=== PATIENT | male | born 1950 | race African-American/Black ===

== ENCOUNTER 2021-02-18 09:22 | Inpatient (IN) | payer OTHER, MEDICAID ==
[~2021-02-18] VITALS: Ht 177.8 cm; Wt 81.0 kg
[~2021-02-18 09:22] MED LIST: AMLO10TA80 PO; ATOR40TA70 MT; CLOP-31 MT; FINA5TAB11 MT; HYDR100T26 PO; ISOS20TA8 PO; METF-414 PO
[2021-02-18] MEDS ORDERED: DEXTROSE 50% WATER 50ML SYRINGE IV ONE ×2 (10:15→14:45)
[2021-02-18 11:08] LABS: HEMATOCRIT. 27.6 % (42.0-52.0); HEMOGLOBIN. 8.9 g/dL (14.0-18.0); MEAN CORPUSCULAR HEMOGLOBIN 27.5 pg (28.0-32.0); MEAN CORPUSCULAR VOLUME 84.9 fL (80.0-94.0); MEAN PLATELET VOLUME 8.3 fl (7.4-10.4); PLATELET 262 x1000/uL (130-400); RED BLOOD CELL COUNT 3.25 mill/uL (4.7-6.1); RED CELL DISTRIBUTION WIDTH 15.8 % (11.6-14.6)
[2021-02-18 11:15] LABS: CHLORIDE 110 mEq/L (98-107)
[2021-02-18 11:47] LABS: PLATELET ESTIMATE NORMAL
[2021-02-18] MEDS ORDERED: SODIUM CHLORIDE 0.9% 1000ML BAG (SEPSIS BOLUS) IV ONE (12:00)
[2021-02-18] MEDS ORDERED: MORPHINE SULFATE 2 MG/ML CPJ (NOT FOR IM USE) IV ONE (12:00)
[2021-02-18] MEDS ORDERED: CEFTRIAXONE 1 G PREMIX 50 ML IV ONE (12:00)
[2021-02-18] MEDS ORDERED: AZITHROMYCIN 500MG/250ML 250 ML IV ONE (12:00)
[2021-02-18] MEDS ORDERED: DEXAMETHASONE 10 MG/ML VIAL IV ONE (14:45)
[2021-02-18] MEDS ORDERED: DEXTROSE 50% WATER 50ML SYRINGE IV NR (14:48)
[2021-02-18] MEDS ORDERED: DEXTROSE 10% WATER 500 ML IV ONE (16:15)
[2021-02-18] MEDS ORDERED: ONDANSETRON HCL 4MG/2ML INJ IV PRN (18:00)
[2021-02-18] MEDS ORDERED: DEXT 10% WATER 1,000 ML IV SCH (18:00)
[2021-02-18] MEDS ORDERED: DEXTROSE 50% WATER 50ML SYRINGE IV PRN (18:00)
[2021-02-18] MEDS: INSULIN LISPRO 100 UNITS/ML SUBCUT SCH ×2 (18:20→21:00)
[2021-02-18] MEDS ORDERED: DOPAMINE 400MG/250ML PREMIX 250 ML IV NR (19:15)
[2021-02-18] MEDS ORDERED: ALBUTEROL (0.5%) 2.5MG/0.5ML NEB HHN SCH (19:30)
[2021-02-18] MEDS: BLOOD SUGAR DIAGNOSTIC STRIP TEST SCH (21:00)
[2021-02-19] MEDS: BLOOD SUGAR DIAGNOSTIC STRIP TEST SCH ×3 (06:40→16:30)
[2021-02-19] MEDS: INSULIN LISPRO 100 UNITS/ML SUBCUT SCH ×3 (06:57→17:00)
[2021-02-19] MEDS ORDERED: DEXTROSE 5% WATER 1,000 ML IV SCH (07:00)
[2021-02-19 09:49] LABS: HEMATOCRIT. 27.9 % (42.0-52.0); HEMOGLOBIN. 8.8 g/dL (14.0-18.0); MEAN CORPUSCULAR HEMOGLOBIN 26.8 pg (28.0-32.0); MEAN CORPUSCULAR VOLUME 84.3 fL (80.0-94.0); MEAN PLATELET VOLUME 8.7 fl (7.4-10.4); PLATELET 256 x1000/uL (130-400); RED BLOOD CELL COUNT 3.31 mill/uL (4.7-6.1); RED CELL DISTRIBUTION WIDTH 15.5 % (11.6-14.6)
[2021-02-19 09:52] LABS: CHLORIDE 108 mEq/L (98-107)
[2021-02-19 09:59] LABS: LDL CHOLESTEROL 64 mg/dL (5-100)
[2021-02-19 10:00] LABS: HDL CHOLESTEROL 47 mg/dL (40-59)
[2021-02-19 13:51] LABS: PLATELET ESTIMATE NORMAL
[2021-02-19 21:16] VITALS: BP 181/54
== END 2021-02-19 21:22 | disposition short-term general hospital (02) | DRG 637 ==
LOC: ER 09:22 → EDBEDREQTM 15:34 → EDBEDREQ 15:34 → EDBEDREQTM 16:20 → EDBEDREQSVC 16:20 → MICUSO 21:03 → CANBEDREQ 02-19 22:12
PROVIDERS: ADMIT General Practice; ATTEND Internal Medicine
DX: E11.649 Type 2 diabetes mellitus with hypoglycemia without coma (principal); G92.8 Other toxic encephalopathy; N17.9 Acute kidney failure, unspecified; D64.9 Anemia, unspecified; E11.51 Type 2 diabetes mellitus with diabetic peripheral angiopathy without gangrene; E78.5 Hyperlipidemia, unspecified; I16.0 Hypertensive urgency; I44.1 Atrioventricular block, second degree; N40.0 Benign prostatic hyperplasia without lower urinary tract symptoms; Z20.822 Contact with and (suspected) exposure to COVID-19; R00.1 Bradycardia, unspecified; I12.9 Hypertensive chronic kidney disease with stage 1 through stage 4 chronic kidney disease, or unspecified chronic kidney disease; E11.22 Type 2 diabetes mellitus with diabetic chronic kidney disease; N18.31 Chronic kidney disease, stage 3a; E11.21 Type 2 diabetes mellitus with diabetic nephropathy; E88.09 Other disorders of plasma-protein metabolism, not elsewhere classified; E83.51 Hypocalcemia; I69.30 Unspecified sequelae of cerebral infarction; Z79.84 Long term (current) use of oral hypoglycemic drugs; Z79.899 Other long term (current) drug therapy; Z79.891 Long term (current) use of opiate analgesic; Z89.432 Acquired absence of left foot
CPT/HCPCS: 36415; 71045; 80053; 80061; 82962; 83036; 83605; 83880; 84484; 85025; 93005; 99291; C9803; J0456; J0696; J1100; J1265; J2270; J7030; J7070; U0003; U0005